=== PATIENT | male | born 1955 | race Caucasian/White ===

== ENCOUNTER 2018-02-04 09:57 | Emergency (ER) | payer MEDICARE | END 2018-02-04 10:45 | disposition home or self-care (01) | LOC: D.ER 09:57 | DX: T26.91XA Corrosion of right eye and adnexa, part unspecified, initial encounter (principal); Y93.89 Activity, other specified; Y92.019 Unspecified place in single-family (private) house as the place of occurrence of the external cause ==

== ENCOUNTER → 2018-12-25 09:06 | Outpatient (CLI) | payer OTHER ==
--- NOTE | 2019-01-03 10:38 | ST ---
PATIENT:SIMON MAHER MEDICAL RECORD: [id number] SEX: M LOCATION:[facility] ORDER #: ADMISSION DATE: 12/25/18 AGE OF PATIENT: 63 REFERRING PHYSICIAN: INTERPRETING PHYSICIAN: SHIREEN DIAZ MD DATE OF SERVICE: 12/25/2018 PROCEDURE: Nuclear stress test. INDICATION: Angina, abnormal ECG, hypertension, hyperlipidemia. She was exercised on standard Lexiscan protocol with 32 mCi of sestamibi injected at peak stress, 10 mCi used previously for rest images. FINDINGS: Gated SPECT reveals preserved ejection fraction at 68% with good wall motion and thickening and brightening throughout all segments. SPECT imaging Cardiolite was used as myocardial fusion agent. There is homogeneous uptake throughout all segments at rest and stress with no evidence of inducible ischemia or previous infarction. OVERALL IMPRESSION: 1. This is a normal nuclear stress test with no evidence of inducible ischemia or previous infarction. 2. Gated SPECT reveals a preserved ejection fraction at 68%. In this patient with ongoing symptomatology, the current scan does not suggest the presence of hemodynamically significant coronary artery disease. Evaluate noncardiac etiology of chest pain. TRANSINT:[id number] Voice Confirmation ID: [id number] DOCUMENT ID: [id number] SHIREEN DIAZ MD at 1038 CC: [id number] DICTATION DATE: 12/26/18 1035 BRICK STACKER: 12/26/18 1107 DEP CLI 12/25/[address] [address]
== END | disposition home or self-care (01) ==
LOC: D.HCCARDIO 09:06
PROVIDERS: ATTEND Internal Medicine Interventional Cardiology
DX: I25.119 Atherosclerotic heart disease of native coronary artery with unspecified angina pectoris (principal)

== ENCOUNTER → 2019-08-13 09:51 | Outpatient (CLI) | payer OTHER | END | disposition home or self-care (01) | LOC: D.RAD 09:51 | PROVIDERS: ATTEND Nurse Practitioner Family | DX: R60.9 Edema, unspecified (principal); W54.0XXA Bitten by dog, initial encounter; T14.8XXA Other injury of unspecified body region, initial encounter ==

== ENCOUNTER 2020-12-26 10:27 | Inpatient (IN) | payer OTHER ==
[~2020-12-26] VITALS: Ht 182.9 cm; Wt 90.9 kg
[2020-12-26] MEDS ORDERED: OMEPRAZOLE40 MG PO (10:54)
[2020-12-26] MEDS ORDERED: VOLTAREN75 MG PO (10:54)
[2020-12-26] MEDS ORDERED: LISINOPRIL20 MG PO (10:54)
[2020-12-26 11:28] LABS: BASOPHILS 0.3 % (0-2); EOSINOPHILS 3.4 % (0-7); HEMATOCRIT 42.3 % (42.0-54.0); HEMOGLOBIN 14.2 g/dL (13.5-17.5); IMMATURE GRANULOCYTES 0.3 % (0-5); LYMPHOCYTE ABS# 1.15 10x3/uL (1.32-3.57); LYMPHOCYTES 19.7 % (15-50); MCHC 33.6 g/dL (31.0-37.0); MCV 89.4 fL (80.0-100.0); MEAN PLATELET VOLUME 10.6 fL (7.4-10.4); MONOCYTES 10.6 % (2-11); NEUTROPHIL ABS# 3.84 10x3/uL (1.78-5.38); NEUTROPHILS 65.7 % (40-80); PLATELET COUNT 184 10x3/uL (130-400); RBC 4.73 10x6/uL (4.20-6.10); RDW 13.5 % (11.5-14.5); WBC 5.9 10x3/uL (4.8-10.8)
[2020-12-26 11:33] LABS: CALC OSMOLALITY 284 mosm/kg (275-300); CALCIUM 9.2 mg/dL (8.5-10.1); CARBON DIOXIDE 21.8 mmol/L (21.0-32.0); CHLORIDE - SERUM 107 mmol/L (98-107); CREATININE - SERUM 2.5 mg/dL (0.6-1.3); GLUCOSE 98 mg/dL (74-106); POTASSIUM - SERUM 5.1 mmol/L (3.5-5.1); SODIUM 139 mmol/L (136-145); UREA NITROGEN 32 mg/dL (7-18); eGFR NON AFRICAN AMERICAN 28 mL/min (90-120)
[2020-12-26 11:42] LABS: ALBUMIN 3.7 g/dL (3.4-5.0); ALKALINE PHOSPHATASE 127 U/L (30-120); ALT (SGPT) 803 U/L (10-68); AMYLASE - SERUM 118 U/L (25-115); BILIRUBIN - TOTAL 1.32 mg/dL (0.2-1.3); LIPASE 390 U/L (73-393); PROTEIN - SERUM 6.9 g/dL (6.4-8.2); TROPONIN-I < 0.017 ng/mL (0.000-0.060)
[2020-12-26 11:47] LABS: BILIRUBIN NEGATIVE (NEGATIVE); KETONE NEGATIVE (NEGATIVE); NITRITE NEGATIVE (NEGATIVE); UROBILINOGEN NORMAL mg/dL (< 2)
[2020-12-26 11:49] LABS: BACTERIA FEW HPF (NONE SEEN); SQUAMOUS EPITHELIAL 0-5 HPF (0-4); WHITE CELLS - URINE 0-5 HPF (0-1)
[2020-12-26 14:33] LABS: UDS - AMPHET NEGATIVE QUAL (NEGATIVE); UDS - BARB NEGATIVE QUAL (NEGATIVE); UDS - BENZO NEGATIVE QUAL (NEGATIVE); UDS - COCAINE NEGATIVE QUAL (NEGATIVE); UDS - OPIATE NEGATIVE QUAL (NEGATIVE); UDS - PCP NEGATIVE QUAL (NEGATIVE); UDS - THC NEGATIVE QUAL (NEGATIVE)
[2020-12-26 15:46] LABS: INR 1.1 (0.85-1.17); PROTIME 13.2 SECONDS (11.6-15.0)
--- NOTE | 2020-12-26 16:15 | NUR ---
Arrived to unit from ER via w/c accompanied by hospital staff, oriented to unit, oriented to room, oriented to bed controls; currently lying in bed, awake/alert/oriented, T/R self ad jennifer, cont of B/B with BRPs per self ad jennifer, denies pain/other discomfort at this time, call light/phone/water within reach, no s/s of acute distress observed.
[2020-12-26 16:23] VITALS: Ht 182.9 cm; Wt 90.9 kg
[2020-12-26 21:30] VITALS: BP 141/71
--- NOTE | 2020-12-27 02:44 | NUR ---
ASSESSED AT THE BEGINNING OF THE SHIFT. PT IS ALERT AND ORIENTED, ABLE TO VERBALIZE NEEDS. HE IS UP TO THE BATHROOM AD MOY AND HAS NOT COMPLAINTED OF ANY NEED FOR PAIN MEDS. HE WAS WONDERING WHEN WE WERE GOING TO GIVE HIM NEW MEDS OR NEW TESTS. INSTRUCTED THAT THE CONSULTING MD HAS TO SEE HIM AND ALL HIS HX AND TEST RESULTS. THEN THEY WILL GET TOGETHER AND GO FROM THERE. AT THIS TIME HE IS RESTING IN BED WITH NO DISTRESS.
[2020-12-27 03:29] VITALS: BP 109/62
[2020-12-27 06:24] LABS: BASOPHILS 0.5 % (0-2); EOSINOPHILS 7.8 % (0-7); HEMATOCRIT 38.5 % (42.0-54.0); HEMOGLOBIN 12.6 g/dL (13.5-17.5); IMMATURE GRANULOCYTES 0.2 % (0-5); LYMPHOCYTE ABS# 1.46 10x3/uL (1.32-3.57); LYMPHOCYTES 26.6 % (15-50); MCH 29.6 pg (26.0-34.0); MCHC 32.7 g/dL (31.0-37.0); MCV 90.4 fL (80.0-100.0); MEAN PLATELET VOLUME 10.8 fL (7.4-10.4); MONOCYTES 7.8 % (2-11); NEUTROPHIL ABS# 3.13 10x3/uL (1.78-5.38); NEUTROPHILS 57.1 % (40-80); PLATELET COUNT 180 10x3/uL (130-400); RBC 4.26 10x6/uL (4.20-6.10); RDW 13.6 % (11.5-14.5); WBC 5.5 10x3/uL (4.8-10.8)
[2020-12-27 06:47] LABS: INR 1.16 (0.85-1.17); PROTIME 13.7 SECONDS (11.6-15.0)
--- NOTE | 2020-12-27 07:00 | NUR ---
Lying in bed, awake/alert/oriented, NPO for test, T/R self ad jennifer, cont of B/B with BRPs per self ad jennifer, denies pain/other discomfort at this time, labs are improving, call light/phone/water within reach, no s/s of acute distress observed.
[2020-12-27 07:06] LABS: ANION GAP 15.6 mmol/L (8-16); BILIRUBIN - TOTAL 0.66 mg/dL (0.2-1.3); CALCIUM 8.3 mg/dL (8.5-10.1); CARBON DIOXIDE 19.2 mmol/L (21.0-32.0); CREATININE - SERUM 1.9 mg/dL (0.6-1.3); MAGNESIUM - SERUM 1.9 mg/dL (1.8-2.4); POTASSIUM - SERUM 4.8 mmol/L (3.5-5.1); PROTEIN - SERUM 5.7 g/dL (6.4-8.2)
[2020-12-27 07:23] LABS: ERYTHROCYTE SEDIMENTATION RATE 10 mm/hr (0-20)
[2020-12-27 07:30] VITALS: BP 141/75
[2020-12-27 08:12] LABS: HEPATITIS C ANTIBODY <0.1 S/CO RAT (0.0-0.9)
--- NOTE | 2020-12-27 08:30 | NUR ---
Off unit for CT
--- NOTE | 2020-12-27 09:00 | NUR ---
Returned to room, cleared for eating, ordered a breakfast tray and provided a soda as requested, call light/phone/water within reach, no s/s of acute distress observed.
[2020-12-27 11:30] VITALS: BP 130/75
[2020-12-27 15:30] VITALS: BP 131/70
[2020-12-27 20:30] VITALS: BP 138/66
[2020-12-28 00:30] VITALS: BP 146/76
[2020-12-28 04:30] VITALS: BP 160/83
[2020-12-28 05:56] LABS: BASOPHILS 0.4 % (0-2); EOSINOPHILS 7.8 % (0-7); HEMATOCRIT 38.6 % (42.0-54.0); HEMOGLOBIN 12.8 g/dL (13.5-17.5); IMMATURE GRANULOCYTES 0.2 % (0-5); LYMPHOCYTE ABS# 1.47 10x3/uL (1.32-3.57); LYMPHOCYTES 28.1 % (15-50); MCHC 33.2 g/dL (31.0-37.0); MCV 90.6 fL (80.0-100.0); MEAN PLATELET VOLUME 10.4 fL (7.4-10.4); MONOCYTES 5.4 % (2-11); NEUTROPHIL ABS# 3.04 10x3/uL (1.78-5.38); NEUTROPHILS 58.1 % (40-80); PLATELET COUNT 164 10x3/uL (130-400); RBC 4.26 10x6/uL (4.20-6.10); RDW 13.5 % (11.5-14.5); WBC 5.2 10x3/uL (4.8-10.8)
[2020-12-28 06:21] LABS: ALBUMIN 3.1 g/dL (3.4-5.0); ANION GAP 15.5 mmol/L (8-16); BILIRUBIN - TOTAL 1.51 mg/dL (0.2-1.3); CALCIUM 8.7 mg/dL (8.5-10.1); CARBON DIOXIDE 20.2 mmol/L (21.0-32.0); CREATININE - SERUM 1.6 mg/dL (0.6-1.3); POTASSIUM - SERUM 4.7 mmol/L (3.5-5.1); PROTEIN - SERUM 6.1 g/dL (6.4-8.2); THYROID STIMULATING HORMONE 0.22 uIU/mL (0.36-3.74)
[2020-12-28] MEDS ORDERED: PROCARDIA XL60 MG PO (08:27)
[2020-12-28 08:43] VITALS: BP 167/81
--- NOTE | 2020-12-28 10:01 | NUR ---
PT'S DISCHARGE INSTRUCTIONS REVIEWED AND SIGNED. IV OUT. SCRIPT TO ASIF, INSTRUCTED TO START TAKING WHEN FILLED. WHEELED TO ER FOR DRIVING SELF HOME.
--- NOTE | 2020-12-28 11:28 | MORECARE ---
CASE MANAGEMENT DISCHARGE SUMMARY PATIENT: VIDAL MAHER UNIT: [id number] ADM DATE: 12/26/20 AGE: 65 : 55 SEX: M ROOM/BED: D.5133 AUTHOR: ANA OCONNOR PHYSICIAN: REFERRING PHYSICIAN: HIRAM KC MD DATE OF SERVICE: 12/28/20 Case Management Discharge Planning Summary COMMENTS ENTERED DATE: 12/28/20 11:13 CT COMMENT TYPE: Discharge Planning REVIEWER: Neeta Montgomery CM met with patient to complete DC plan and to evaluate needs. Patient lives independently alone. Patient stated that his home is safe and has electricity and running water. Patient stated that he has no problems paying for medications and he fills his medications at [facility]. Patient stated that his primary care physician is Dr. Gomez. At discharge, the patient plans to return home and feels this is a safe discharge. CM discussed availability of home health, rehab services, and medical equipment. Patient declined HHS, SNF, IPR, and DME. Patient stated that he is independent and requires no assistance with ADLs. Patient voiced no other needs at this time and is satisfied with DC plan. Patient stated that his brother will provide transportation after discharge. DC IMM delivered, explained, signed by the patient, and placed in chart. Signed form also left with the patient. CM will continue to follow and will assist as needed with dc plans/needs. DCP REVIEW SUMMARY ANTICIPATED D/C DATE: 12/28/2020 EXPECTED LOS : 2 CASE STATUS: DCP Complete INITIAL REVIEW: 12/28/2020 INITIAL REVIEWER: Neeta Montgomery FINAL DISCHARGE DISPOSITION: 01 : Home or Self Care (Routine Discharge) FINAL REVIEWER: FINAL REVIEW DATE: [facility] Focus Questions & Answers QUESTION: ANSWER : PATIENT: VIDAL MAHER ENCOUNTER: [id number] MEDICAL RECORD#: [id number] ADMISSION DATE: 12/26/2020 DISCHARGE DATE: 12/28/2020 ATTENDING MD: GENARO: AGE: 65 MARITAL STATUS: S DC PLAN ID: [id number] FACILITY: [facility] PRINTED ON: 12/28/20 11:27 CT All edits/amendments must be made on the electronic document DICTATION DATE: 12/28/201126 MARINE CARGO SURVEYOR: NAYE 12/28/20 112 RPT#: [id number] DC DATE:12/28/20 STATUS: DIS IN [facility] [address] [place] [address] END OF REPORT
--- NOTE | 2020-12-28 11:39 | MORECARE ---
CASE MANAGEMENT DISCHARGE SUMMARY PATIENT: VIDAL MAHER JR UNIT: [id number] ADM DATE: 12/26/20 AGE: 65 : 55 SEX: M ROOM/BED: D.8223 AUTHOR: ANA OCONNOR PHYSICIAN: REFERRING PHYSICIAN: HIRAM KC MD DATE OF SERVICE: 12/28/20 Case Management Discharge Planning Summary COMMENTS ENTERED DATE: 12/28/20 11:13 CT COMMENT TYPE: Discharge Planning REVIEWER: Neeta Montgomery CM met with patient to complete DC plan and to evaluate needs. Patient lives independently alone. Patient stated that his home is safe and has electricity and running water. Patient stated that he has no problems paying for medications and he fills his medications at [facility]. Patient stated that his primary care physician is Dr. Gomez. At discharge, the patient plans to return home and feels this is a safe discharge. CM discussed availability of home health, rehab services, and medical equipment. Patient declined HHS, SNF, IPR, and DME. Patient stated that he is independent and requires no assistance with ADLs. Patient voiced no other needs at this time and is satisfied with DC plan. Patient stated that his brother will provide transportation after discharge. DC IMM delivered, explained, signed by the patient, and placed in chart. Signed form also left with the patient. CM will continue to follow and will assist as needed with dc plans/needs. DCP REVIEW SUMMARY ANTICIPATED D/C DATE: 12/28/2020 EXPECTED LOS : 2 CASE STATUS: DCP Complete INITIAL REVIEW: 12/28/2020 INITIAL REVIEWER: Neeta Montgomery FINAL DISCHARGE DISPOSITION: 01 : Home or Self Care (Routine Discharge) FINAL REVIEWER: FINAL REVIEW DATE: DCP Focus Questions & Answers DCP Screen QUESTION: ANSWER High Risk Factors: : None Walking limitation: Patient stated self rated walking limitation present? : No Age: : 65 - 79 Prior living environment: : Lives Alone Disability ranking: : Grade 1: No significant disability DCP Evaluation QUESTION: ANSWER Patient and/or caregiver agree upon recommended discharge plan? : Yes Patient's current cognitive status: : *Oriented to person, place, situation, time and present Patient's ability to cope with chronic illness : d. No chronic illness Does the patient have the ability to pay for or attain post discharge needs / services? : Yes Functional screen assessment: : Basic needs can adequately be met by self Physical Status: : Independent with ADL's Equipment needed for post hospitalization: : None Is there a likelihood that the patient will require additional services to return to the preadmission environment? : No Living Arrangements: : Home Alone with Support Results of this evaluation have been discussed with: : Patient Patient with capacity for self-care or can be cared for in same environment as prior to hospitalization? : Yes Living arrangements comments: : Lives alone and reports independence of ADLs Baseline cognitive status: : *Oriented to person, place, situation, time and present Physical environment modification needed / anticipated for discharge: : No Medication Management: : Patient states can afford medications Planned post hospital services available for patient? : No Pharmacy name(s): : [facility] Planned post hospital services covered by insurance plan? : N/A Does Patient have transportation to get home and to follow-up medical appointments when discharged from the hospital? : Yes Would patient like to participate in any Care Coordination programs (if applicable): : Not applicable Comments: : Patient drives himself to appointments. Does the patient have electricity at home? : Yes Does the patient have running water in their house? : Yes Equipment in use: : None Mental health screen: : No mental health history DCP Re-evaluation QUESTION: ANSWER Would patient like to participate in any Care Coordination programs (if applicable): : Not applicable PATIENT: VIDAL MAHER ENCOUNTER: [id number] MEDICAL RECORD#: [id number] ADMISSION DATE: 12/26/2020 DISCHARGE DATE: 12/28/2020 ATTENDING MD: GENARO: AGE: 65 MARITAL STATUS: S DC PLAN ID: [id number] FACILITY: [facility] PRINTED ON: 12/28/20 11:38 CT All edits/amendments must be made on the electronic document DICTATION DATE: 12/28/20 113 LICENSED OCCUPATIONAL THERAPIST: NAYE 12/28/20 1138 RPT#: [id number] DC DATE:12/28/20 STATUS: DIS IN [facility] [address] [place] [address] END OF REPORT
[2020-12-29 18:08] LABS: SPE - A/G RATIO 1.6 (0.7-1.7); SPE - ALBUMIN 3.3 g/dL (2.9-4.4); SPE - ALPHA-1 GLOBULIN 0.2 g/dL (0.0-0.4); SPE - ALPHA-2 GLOBULIN 0.5 g/dL (0.4-1.0); SPE - BETA GLOBULIN 0.9 g/dL (0.7-1.3); SPE - GAMMA GLOBULIN 0.6 g/dL (0.4-1.8); SPE - M-SPIKE Not Observed g/dL (Not Observed); SPE - TOTAL PROTEIN 5.4 g/dL (6.0-8.5)
--- NOTE | 2020-12-31 20:34 | MORECARE ---
CASE MANAGEMENT DISCHARGE SUMMARY PATIENT: VIDAL MAHER JR UNIT: [id number] ADM DATE: 12/26/20 AGE: 65 : 55 SEX: M ROOM/BED: D.7853 AUTHOR: ANA OCONNOR PHYSICIAN: REFERRING PHYSICIAN: HIRAM KC MD DATE OF SERVICE: 12/31/20 Case Management Discharge Planning Summary COMMENTS ENTERED DATE: 12/28/20 11:13 CT COMMENT TYPE: Discharge Planning REVIEWER: Neeta Montgomery CM met with patient to complete DC plan and to evaluate needs. Patient lives independently alone. Patient stated that his home is safe and has electricity and running water. Patient stated that he has no problems paying for medications and he fills his medications at [facility]. Patient stated that his primary care physician is Dr. Gomez. At discharge, the patient plans to return home and feels this is a safe discharge. CM discussed availability of home health, rehab services, and medical equipment. Patient declined HHS, SNF, IPR, and DME. Patient stated that he is independent and requires no assistance with ADLs. Patient voiced no other needs at this time and is satisfied with DC plan. Patient stated that his brother will provide transportation after discharge. DC IMM delivered, explained, signed by the patient, and placed in chart. Signed form also left with the patient. CM will continue to follow and will assist as needed with dc plans/needs. DCP REVIEW SUMMARY ANTICIPATED D/C DATE: 12/28/2020 EXPECTED LOS : 2 CASE STATUS: DCP Complete INITIAL REVIEW: 12/28/2020 INITIAL REVIEWER: Neeta Montgomery FINAL DISCHARGE DISPOSITION: 01 : Home or Self Care (Routine Discharge) FINAL REVIEWER: FINAL REVIEW DATE: DCP Focus Questions & Answers DCP Screen QUESTION: ANSWER High Risk Factors: : None Walking limitation: Patient stated self rated walking limitation present? : No Age: : 65 - 79 Prior living environment: : Lives Alone Disability ranking: : Grade 1: No significant disability DCP Evaluation QUESTION: ANSWER Patient and/or caregiver agree upon recommended discharge plan? : Yes Patient's current cognitive status: : *Oriented to person, place, situation, time and present Patient's ability to cope with chronic illness : d. No chronic illness Does the patient have the ability to pay for or attain post discharge needs / services? : Yes Functional screen assessment: : Basic needs can adequately be met by self Physical Status: : Independent with ADL's Equipment needed for post hospitalization: : None Is there a likelihood that the patient will require additional services to return to the preadmission environment? : No Living Arrangements: : Home Alone with Support Results of this evaluation have been discussed with: : Patient Patient with capacity for self-care or can be cared for in same environment as prior to hospitalization? : Yes Living arrangements comments: : Lives alone and reports independence of ADLs Baseline cognitive status: : *Oriented to person, place, situation, time and present Physical environment modification needed / anticipated for discharge: : No Medication Management: : Patient states can afford medications Planned post hospital services available for patient? : No Pharmacy name(s): : [facility] [address] Planned post hospital services covered by insurance plan? : N/A Does Patient have transportation to get home and to follow-up medical appointments when discharged from the hospital? : Yes Would patient like to participate in any Care Coordination programs (if applicable): : Not applicable Comments: : Patient drives himself to appointments. Does the patient have electricity at home? : Yes Does the patient have running water in their house? : Yes Equipment in use: : None Mental health screen: : No mental health history DCP Re-evaluation QUESTION: ANSWER Would patient like to participate in any Care Coordination programs (if applicable): : Not applicable PATIENT: VIDAL MAHER ENCOUNTER: [id number] MEDICAL RECORD#: [id number] ADMISSION DATE: 12/26/2020 DISCHARGE DATE: 12/28/2020 ATTENDING MD: GENARO: AGE: 65 MARITAL STATUS: S DC PLAN ID: [id number] FACILITY: [facility] PRINTED ON: 12/31/20 20:33 CT All edits/amendments must be made on the electronic document DICTATION DATE: 12/31/202032 PRODUCT TEST ENGINEER: NAYE 12/31/202032 RPT#: [id number] DC DATE:12/28/20 STATUS: DIS IN [facility] [address] [place] [address] END OF REPORT
[2021-01-01 11:11] LABS: CAT - DOPAMINE <30 pg/mL (0-48); CAT - EPINEPHRINE <15 pg/mL (0-62); CAT - NOREPINEPHRINE 47 pg/mL (0-874)
== END 2020-12-28 10:02 | disposition home or self-care (01) | DRG 444 ==
LOC: D.ER 10:27 → D.M2 14:08 → D.ER 15:26 → D.M2 12-28 10:02
PROVIDERS: Emergency Medicine; Internal Medicine Nephrology; ADMIT Family Medicine; ATTEND Family Medicine
DX: K81.1 Chronic cholecystitis (principal); K72.00 Acute and subacute hepatic failure without coma; N17.9 Acute kidney failure, unspecified; G89.29 Other chronic pain; M54.5 Low back pain; I25.10 Atherosclerotic heart disease of native coronary artery without angina pectoris; J43.9 Emphysema, unspecified; I11.0 Hypertensive heart disease with heart failure; I50.9 Heart failure, unspecified; K21.9 Gastro-esophageal reflux disease without esophagitis; Z86.73 Personal history of transient ischemic attack (TIA), and cerebral infarction without residual deficits

== ENCOUNTER 2020-12-30 10:26 | Inpatient (IN) | payer OTHER ==
[~2020-12-30] VITALS: Ht 182.9 cm; Wt 90.7 kg
[~2020-12-30 10:26] MED LIST: LISINOPRIL20 MG PO; OMEPRAZOLE40 MG PO; PROCARDIA XL60 MG PO; VOLTAREN75 MG PO
[2020-12-30 11:00] LABS: ANION GAP 17.5 mmol/L (8-16); CALCIUM 9.9 mg/dL (8.5-10.1); CARBON DIOXIDE 19.2 mmol/L (21.0-32.0); CREATININE - SERUM 1.9 mg/dL (0.6-1.3); POTASSIUM - SERUM 4.7 mmol/L (3.5-5.1)
[2020-12-30 11:08] LABS: ALBUMIN 4.3 g/dL (3.4-5.0); BILIRUBIN - TOTAL 5.13 mg/dL (0.2-1.3); PROTEIN - SERUM 7.8 g/dL (6.4-8.2)
[2020-12-30 11:57] LABS: BASOPHILS 0.1 % (0-2); EOSINOPHILS 0.2 % (0-7); HEMATOCRIT 46.3 % (42.0-54.0); HEMOGLOBIN 15.6 g/dL (13.5-17.5); IMMATURE GRANULOCYTES 0.3 % (0-5); LYMPHOCYTES 4.5 % (15-50); MCH 30.2 pg (26.0-34.0); MCHC 33.7 g/dL (31.0-37.0); MCV 89.7 fL (80.0-100.0); MEAN PLATELET VOLUME 11.3 fL (7.4-10.4); MONOCYTES 6.1 % (2-11); NEUTROPHIL ABS# 11.78 10x3/uL (1.78-5.38); NEUTROPHILS 88.8 % (40-80); PLATELET COUNT 241 10x3/uL (130-400); RBC 5.16 10x6/uL (4.20-6.10); RDW 13.5 % (11.5-14.5); WBC 13.3 10x3/uL (4.8-10.8)
[2020-12-30 11:58] LABS: BILIRUBIN 1+ (NEGATIVE); KETONE NEGATIVE (NEGATIVE); NITRITE NEGATIVE (NEGATIVE); UROBILINOGEN 4 mg/dL (< 2)
[2020-12-30 12:01] LABS: BACTERIA MODERATE HPF (NONE SEEN); SQUAMOUS EPITHELIAL 0-5 HPF (0-4); WHITE CELLS - URINE RARE HPF (0-1)
[2020-12-30 12:02] LABS: GRANULAR CAST RARE LPF (NONE SEEN)
[2020-12-30 14:41] LABS: INR 0.97 (0.85-1.17); PROTIME 11.9 SECONDS (11.6-15.0)
[2020-12-30 15:09] VITALS: BP 181/79
--- NOTE | 2020-12-30 16:00 | NUR ---
RECEIVED PATIENT FROM ER . PATIENT COMPLAINS OF ABD PAIN AND BLOATING. PATIENT VITALS CHECKED AND PLAN OF CARE REVIEWED. PATIENT DENIES FURTHER NEEDS. CALL LIGHT IN REACH. NAD NOTED.
[2020-12-30 16:01] VITALS: BMI 27.2
--- NOTE | 2020-12-30 19:30 | NUR ---
PT IN BED, AAO X 4, RESP EVEN AND UNLABORED, NO DISTRESS NOTED, CL IN REACH, SR UP X 2.
[2020-12-30 20:00] VITALS: BP 149/79
[2020-12-31] VITALS: BP 170/98
[2020-12-31 04:00] VITALS: BP 176/94
[2020-12-31 06:12] LABS: BASOPHILS 0.1 % (0-2); EOSINOPHILS 0.2 % (0-7); HEMATOCRIT 43.8 % (42.0-54.0); HEMOGLOBIN 14.3 g/dL (13.5-17.5); IMMATURE GRANULOCYTES 0.2 % (0-5); LYMPHOCYTE ABS# 0.75 10x3/uL (1.32-3.57); LYMPHOCYTES 5.6 % (15-50); MCHC 32.6 g/dL (31.0-37.0); MEAN PLATELET VOLUME 10.6 fL (7.4-10.4); MONOCYTES 8.7 % (2-11); NEUTROPHIL ABS# 11.33 10x3/uL (1.78-5.38); NEUTROPHILS 85.2 % (40-80); RBC 4.77 10x6/uL (4.20-6.10); RDW 13.7 % (11.5-14.5); WBC 13.3 10x3/uL (4.8-10.8)
[2020-12-31 06:32] LABS: ALBUMIN 3.3 g/dL (3.4-5.0); ANION GAP 17.5 mmol/L (8-16); BILIRUBIN - TOTAL 2.37 mg/dL (0.2-1.3); CALCIUM 8.5 mg/dL (8.5-10.1); CARBON DIOXIDE 20.1 mmol/L (21.0-32.0); CREATININE - SERUM 1.7 mg/dL (0.6-1.3); MAGNESIUM - SERUM 1.6 mg/dL (1.8-2.4); PHOSPHOROUS 2.8 mg/dL (2.5-4.9); POTASSIUM - SERUM 4.6 mmol/L (3.5-5.1); PROTEIN - SERUM 6.4 g/dL (6.4-8.2)
[2020-12-31 06:34] LABS: MCV 91.8 fL (80.0-100.0); PLATELET COUNT 178 10x3/uL (130-400)
--- NOTE | 2020-12-31 07:20 | NUR ---
Lying in bed, awake/alert/oriented, T/R self ad jennifer, cont of B/B with BRPs per self ad jennifer, c/o sharp abdominal pain rated 8/10, medicated as ordered (see MAR), call light/phone/water within reach, no s/s of acute distress observed.
[2020-12-31 08:53] VITALS: BP 157/93
[2020-12-31 11:56] VITALS: BP 139/92
[2020-12-31 16:07] VITALS: BP 144/89
[2020-12-31 19:46] VITALS: BP 161/84
[2021-01-01 05:09] VITALS: BP 148/76
[2021-01-01 06:51] LABS: BASOPHILS 0.1 % (0-2); EOSINOPHILS 0.3 % (0-7); HEMATOCRIT 38.3 % (42.0-54.0); HEMOGLOBIN 12.8 g/dL (13.5-17.5); IMMATURE GRANULOCYTES 0.3 % (0-5); LYMPHOCYTE ABS# 1.28 10x3/uL (1.32-3.57); LYMPHOCYTES 8.7 % (15-50); MCH 30.4 pg (26.0-34.0); MCHC 33.4 g/dL (31.0-37.0); MEAN PLATELET VOLUME 10.6 fL (7.4-10.4); MONOCYTES 9.7 % (2-11); NEUTROPHIL ABS# 11.81 10x3/uL (1.78-5.38); NEUTROPHILS 80.9 % (40-80); RBC 4.21 10x6/uL (4.20-6.10); RDW 13.2 % (11.5-14.5); WBC 14.6 10x3/uL (4.8-10.8)
[2021-01-01 07:04] LABS: PLATELET COUNT 132 10x3/uL (130-400)
[2021-01-01 07:07] LABS: ALBUMIN 2.8 g/dL (3.4-5.0); ANION GAP 13.3 mmol/L (8-16); BILIRUBIN - TOTAL 1.2 mg/dL (0.2-1.3); CALCIUM 8.3 mg/dL (8.5-10.1); CARBON DIOXIDE 21.7 mmol/L (21.0-32.0); CREATININE - SERUM 1.6 mg/dL (0.6-1.3); MAGNESIUM - SERUM 1.6 mg/dL (1.8-2.4); PHOSPHOROUS 2.2 mg/dL (2.5-4.9)
--- NOTE | 2021-01-01 07:30 | NUR ---
Lying in bed, awake/alert/oriented, T/R self ad jennifer, cont of B/B with BRPs per self ad jennifer, denies pain/other discomfort, call light/phone/water within reach, no s/s of acute distress observed.
[2021-01-01 08:17] VITALS: BP 145/90
[2021-01-01 11:36] VITALS: BP 142/86
[2021-01-01 15:58] VITALS: BP 146/91
--- NOTE | 2021-01-01 18:55 | NUR ---
PT LYING IN BED, AWAKE ALERT NO DISTRESS NOTED WILL COTNIUE TO MONITOR
--- NOTE | 2021-01-01 19:08 | NUR ---
pt ambulating outside room at nurses desk, awake alert no distress noted
[2021-01-01 19:17] VITALS: BP 142/74
[2021-01-02 00:33] VITALS: BP 114/75
[2021-01-02 04:39] VITALS: BP 126/77
[2021-01-02 06:33] LABS: BASOPHILS 0.1 % (0-2); EOSINOPHILS 0.6 % (0-7); HEMATOCRIT 36.8 % (42.0-54.0); HEMOGLOBIN 12.4 g/dL (13.5-17.5); IMMATURE GRANULOCYTES 0.4 % (0-5); LYMPHOCYTE ABS# 1.26 10x3/uL (1.32-3.57); LYMPHOCYTES 9.4 % (15-50); MCH 30.1 pg (26.0-34.0); MCHC 33.7 g/dL (31.0-37.0); MCV 89.3 fL (80.0-100.0); MEAN PLATELET VOLUME 10.8 fL (7.4-10.4); MONOCYTES 10.2 % (2-11); NEUTROPHIL ABS# 10.66 10x3/uL (1.78-5.38); NEUTROPHILS 79.3 % (40-80); PLATELET COUNT 149 10x3/uL (130-400); RBC 4.12 10x6/uL (4.20-6.10); RDW 12.9 % (11.5-14.5); WBC 13.4 10x3/uL (4.8-10.8)
[2021-01-02 07:25] LABS: ALBUMIN 2.6 g/dL (3.4-5.0); BILIRUBIN - TOTAL 1.21 mg/dL (0.2-1.3); CALCIUM 8.5 mg/dL (8.5-10.1); CARBON DIOXIDE 22.6 mmol/L (21.0-32.0); CREATININE - SERUM 1.7 mg/dL (0.6-1.3); MAGNESIUM - SERUM 1.5 mg/dL (1.8-2.4); PHOSPHOROUS 2.4 mg/dL (2.5-4.9); POTASSIUM - SERUM 3.6 mmol/L (3.5-5.1); PROTEIN - SERUM 6.1 g/dL (6.4-8.2)
--- NOTE | 2021-01-02 07:30 | NUR ---
Lying in bed, awake/alert/oriented, T/R self ad jennifer, cont of B/B with BRPs per self ad jennifer, denies pain/other discomfort at this time, call light/phone/water within reach, no s/s of acute distress observed.
[2021-01-02 08:51] VITALS: BP 114/72
[2021-01-02 13:06] VITALS: BP 131/64
[2021-01-02 13:44] VITALS: BMI 27.1
[2021-01-02 15:51] VITALS: BP 152/80
[2021-01-02 20:19] VITALS: BP 120/68
[2021-01-03 00:59] VITALS: BP 100/64
--- NOTE | 2021-01-03 02:01 | NUR ---
01/02/211999-- PT C/O BACK PAIN, ABDOMINAL PAIN & NAUSEA. WILL MEDICATE ORDERED. IVF INFUSING WILL CONTINUE TO MONITOR
--- NOTE | 2021-01-03 02:03 | NUR ---
01/02/21 @ 2029 NOTIFED АЛЕКСАНДР OF KUB RESULTS STATING THAT PT HAD PROBABLE ILEUS. NO NEW ORDERS RECEIVED AT THIS TIME.
[2021-01-03 05:47] VITALS: BP 106/71
[2021-01-03 06:47] LABS: BASOPHILS 0.1 % (0-2); EOSINOPHILS 0.8 % (0-7); HEMATOCRIT 34.3 % (42.0-54.0); HEMOGLOBIN 11.6 g/dL (13.5-17.5); IMMATURE GRANULOCYTES 0.3 % (0-5); LYMPHOCYTE ABS# 0.92 10x3/uL (1.32-3.57); LYMPHOCYTES 8.4 % (15-50); MCH 29.7 pg (26.0-34.0); MCHC 33.8 g/dL (31.0-37.0); MCV 87.9 fL (80.0-100.0); MEAN PLATELET VOLUME 10.7 fL (7.4-10.4); MONOCYTES 12.9 % (2-11); NEUTROPHIL ABS# 8.45 10x3/uL (1.78-5.38); NEUTROPHILS 77.5 % (40-80); PLATELET COUNT 170 10x3/uL (130-400); RDW 12.7 % (11.5-14.5); WBC 10.9 10x3/uL (4.8-10.8)
[2021-01-03 07:20] LABS: ALBUMIN 2.3 g/dL (3.4-5.0); ANION GAP 13.3 mmol/L (8-16); BILIRUBIN - TOTAL 0.99 mg/dL (0.2-1.3); CALCIUM 8.1 mg/dL (8.5-10.1); CARBON DIOXIDE 24.3 mmol/L (21.0-32.0); CREATININE - SERUM 1.8 mg/dL (0.6-1.3); MAGNESIUM - SERUM 1.6 mg/dL (1.8-2.4); POTASSIUM - SERUM 3.6 mmol/L (3.5-5.1)
[2021-01-03 07:21] LABS: PHOSPHOROUS 3.1 mg/dL (2.5-4.9)
[2021-01-03 08:26] VITALS: BP 115/69
[2021-01-03 12:41] VITALS: BP 115/69
[2021-01-03 15:20] VITALS: BP 104/56
--- NOTE | 2021-01-03 19:00 | NUR ---
REPORT RECEIVED AND CARE OF PT ASSUMED. PT LYING IN HIGH JAVIER'S POSITION WATCHING TV. IV TO LEFT WRIST SALINE LOCKED...PT STATES IT IS BURNING...WILL RE-SITE.
[2021-01-03 19:42] VITALS: Ht 182.9 cm; Wt 90.7 kg
--- NOTE | 2021-01-03 19:50 | NUR ---
RE-SITED IV TO RIGHT HAND USING 22 GUAGE CATHETER. REMOVED IV IN LEFT WRIST WITH CATHETER TIP INTACT.
--- NOTE | 2021-01-03 20:01 | NUR ---
HS MEDICATIONS GIVEN TO INCLUDE MORPHINE IVP PER REQUEST FOR SEVERE ABDOMINAL PAIN AT LEVEL 9/10. WILL MONITOR FOR EFFECITVENESS.
--- NOTE | 2021-01-03 22:30 | NUR ---
GAVE 480 ML OF [place] OF [place]COMA SODA WITH ICE...PT DRINKING PLENTY OF CLEAR LIQUIDS...HE REFUSED TO HAVE IV FLUIDS RE-STARTED.
--- NOTE | 2021-01-03 22:35 | NUR ---
PT UP AMBULATING IN THE HALLWAY AT THIS TIME.
--- NOTE | 2021-01-03 23:32 | NUR ---
GIVE MORPHINE 4 MG IVP PER REQUEST FOR ACHING PAIN IN ABDOMEN AND BACK AT LEVEL 8/10. WILL MONITOR FOE EFFECTIVENESS.
--- NOTE | 2021-01-04 04:21 | NUR ---
GAVE PT MORPHINE IVP PER REQUEST FOR PAIN IN LEFT ARM / ELBOW, AND ABDOMEN. PT STATES HIS LEFT ARM MORE PAINFUL NIGHT GOES ON...STATES HISTORY OF ARTHRITIS AND BURSITIS IN ARM. PT WILL REPORT TO MD IN AM.
[2021-01-04 06:04] LABS: BASOPHILS 0.1 % (0-2); EOSINOPHILS 0.6 % (0-7); HEMATOCRIT 32.2 % (42.0-54.0); HEMOGLOBIN 11.1 g/dL (13.5-17.5); IMMATURE GRANULOCYTES 0.3 % (0-5); LYMPHOCYTE ABS# 0.77 10x3/uL (1.32-3.57); LYMPHOCYTES 5.9 % (15-50); MCH 30.1 pg (26.0-34.0); MCHC 34.5 g/dL (31.0-37.0); MCV 87.3 fL (80.0-100.0); MEAN PLATELET VOLUME 10.4 fL (7.4-10.4); MONOCYTES 13.3 % (2-11); NEUTROPHIL ABS# 10.33 10x3/uL (1.78-5.38); NEUTROPHILS 79.8 % (40-80); RBC 3.69 10x6/uL (4.20-6.10); RDW 12.6 % (11.5-14.5)
[2021-01-04 06:07] LABS: PLATELET COUNT 217 10x3/uL (130-400)
[2021-01-04 06:41] LABS: ALBUMIN 2.2 g/dL (3.4-5.0); ANION GAP 13.7 mmol/L (8-16); BILIRUBIN - TOTAL 0.85 mg/dL (0.2-1.3); CALCIUM 8.4 mg/dL (8.5-10.1); CARBON DIOXIDE 22.9 mmol/L (21.0-32.0); CREATININE - SERUM 1.8 mg/dL (0.6-1.3); MAGNESIUM - SERUM 1.6 mg/dL (1.8-2.4); PHOSPHOROUS 2.9 mg/dL (2.5-4.9); POTASSIUM - SERUM 3.6 mmol/L (3.5-5.1); PROTEIN - SERUM 5.9 g/dL (6.4-8.2)
--- NOTE | 2021-01-04 07:20 | NUR ---
RECIEVE REPORT. ALERT AND ORIENTED X4. SITTING UP IN BED WATCHING TV. REPLACE Mg PER PROTOCOL. DENIES ANY NEEDS. CONTINUE PLAN OF CARE AND SAFETY PRECAUTIONS.
[2021-01-04 08:27] VITALS: BP 109/76
[2021-01-04 12:10] VITALS: BP 113/64
[2021-01-04 16:06] VITALS: BP 139/79
[2021-01-04 20:00] VITALS: BP 135/71
[2021-01-05 05:58] VITALS: BP 137/74
[2021-01-05 07:08] LABS: BASOPHILS 0.1 % (0-2); EOSINOPHILS 0.1 % (0-7); HEMOGLOBIN 11.9 g/dL (13.5-17.5); IMMATURE GRANULOCYTES 0.5 % (0-5); LYMPHOCYTE ABS# 0.85 10x3/uL (1.32-3.57); LYMPHOCYTES 5.6 % (15-50); MCH 29.5 pg (26.0-34.0); MCV 86.6 fL (80.0-100.0); MEAN PLATELET VOLUME 9.9 fL (7.4-10.4); MONOCYTES 11.7 % (2-11); NEUTROPHIL ABS# 12.34 10x3/uL (1.78-5.38); PLATELET COUNT 242 10x3/uL (130-400); RBC 4.04 10x6/uL (4.20-6.10); RDW 12.6 % (11.5-14.5); WBC 15.1 10x3/uL (4.8-10.8)
--- NOTE | 2021-01-05 07:20 | NUR ---
RECIEVE REPORT. ALERT AND ORIENTED X4. SITTING UP IN BED WATCHING TV. DENIES ANY NEEDS. CONTINUE PLAN OF CARE AND SAFETY PRECAUTIONS.
[2021-01-05 07:48] LABS: ALBUMIN 2.3 g/dL (3.4-5.0); ANION GAP 16.5 mmol/L (8-16); BILIRUBIN - TOTAL 0.8 mg/dL (0.2-1.3); CALCIUM 8.4 mg/dL (8.5-10.1); CARBON DIOXIDE 22.8 mmol/L (21.0-32.0); CREATININE - SERUM 1.9 mg/dL (0.6-1.3); POTASSIUM - SERUM 3.3 mmol/L (3.5-5.1); PROTEIN - SERUM 5.6 g/dL (6.4-8.2)
--- NOTE | 2021-01-05 14:01 | NUR ---
Nutrition Follow-up: Pt sleeping soundly at time of visit this AM. Chart reviewed. Noted diet advanced per surgery. Abd XR yesterday showed mild ileus without change. +BM. Diet: Regular, Low-fat No new wt; last wt: 200# (01/02) Labs noted: Na 132, K+ 3.3, BUN 22, Cre 1.9, GFR 38, Glu 155, Ca 8.4, Alb 2.3 Meds noted: Lactulose, Florajen, Senokot, Protonix, electrolyte protocol -Encourage PO intake and honor food preferences within diet restrictions; monitor bowel function. -Offer nutrition supplements. -Need new wt. -RD will follow up within 3-4 days.
[2021-01-05 22:25] VITALS: BP 122/60
[2021-01-06] VITALS: BP 106/60
--- NOTE | 2021-01-06 04:20 | NUR ---
I have reviewed this patient and I concur with the Shift Assessment completed by the Licensed Practical Nurse today this shift.
[2021-01-06 10:10] LABS: BASOPHILS 0.1 % (0-2); EOSINOPHILS 0.1 % (0-7); HEMATOCRIT 34.6 % (42.0-54.0); HEMOGLOBIN 11.8 g/dL (13.5-17.5); IMMATURE GRANULOCYTES 0.7 % (0-5); LYMPHOCYTE ABS# 0.48 10x3/uL (1.32-3.57); LYMPHOCYTES 3.1 % (15-50); MCH 29.5 pg (26.0-34.0); MCHC 34.1 g/dL (31.0-37.0); MCV 86.5 fL (80.0-100.0); MEAN PLATELET VOLUME 9.6 fL (7.4-10.4); MONOCYTES 6.5 % (2-11); NEUTROPHIL ABS# 13.89 10x3/uL (1.78-5.38); NEUTROPHILS 89.5 % (40-80); PLATELET COUNT 258 10x3/uL (130-400); RDW 12.6 % (11.5-14.5); WBC 15.5 10x3/uL (4.8-10.8)
[2021-01-06 10:19] LABS: ANION GAP 15.3 mmol/L (8-16); CALCIUM 8.6 mg/dL (8.5-10.1); CARBON DIOXIDE 21.6 mmol/L (21.0-32.0); POTASSIUM - SERUM 3.9 mmol/L (3.5-5.1)
--- NOTE | 2021-01-06 13:35 | NUR ---
REHAB PRESCREEN RECEIVED. PATIENTS THERAPIES ARE STILL PENDING. I WILL LOOK THROUGH THE CHART ONCE THESE ARE COMPLETED TO SEE IF HE MEETS CRITERIA. IF HE DOES, WE WILL HAVE TO SEND FOR AUTH WITH RENZO. THANK YOU FOR THE REFERRAL. TAMARA SCHERER RN CLINICAL LIAISON, INPATIENT REHAB.
[2021-01-06 15:17] VITALS: BP 126/73
[2021-01-06 20:00] VITALS: BP 126/73
[2021-01-06 21:45] VITALS: BP 123/67
--- NOTE | 2021-01-07 00:47 | NUR ---
1999-- PT SITTING UP IN BED. TALKATIVE C/O PAIN TO BODY VERY DISHEVELED & STALE BODY ODOR NOTED TO ROOM BSC EMPTIED & CLEANED PT CLOTHES THROWN IN CORNER WITH WET, URINE ODOR NOTED. STATES THAT HE ISN'T ABLE TO FEED SELF D/T INFLAMMATION & SORENESS TO JOINTS FRESH WATER TO BEDSIDE & MEDICATED FOR PAIN ORDERED
[2021-01-07 01:34] VITALS: BP 107/66
[2021-01-07 04:43] LABS: BASOPHILS 0 % (0-2); EOSINOPHILS 0 % (0-7); HEMATOCRIT 33.4 % (42.0-54.0); HEMOGLOBIN 11.6 g/dL (13.5-17.5); IMMATURE GRANULOCYTES 0.5 % (0-5); LYMPHOCYTE ABS# 0.59 10x3/uL (1.32-3.57); MCHC 34.7 g/dL (31.0-37.0); MCV 86.3 fL (80.0-100.0); MEAN PLATELET VOLUME 9.9 fL (7.4-10.4); MONOCYTES 4.4 % (2-11); NEUTROPHIL ABS# 13.36 10x3/uL (1.78-5.38); NEUTROPHILS 91.1 % (40-80); RBC 3.87 10x6/uL (4.20-6.10); RDW 12.5 % (11.5-14.5); WBC 14.7 10x3/uL (4.8-10.8)
[2021-01-07 04:51] LABS: PLATELET COUNT 311 10x3/uL (130-400)
[2021-01-07 05:00] LABS: ALBUMIN 1.8 g/dL (3.4-5.0); ANION GAP 17.2 mmol/L (8-16); BILIRUBIN - TOTAL 0.43 mg/dL (0.2-1.3); CALCIUM 8.5 mg/dL (8.5-10.1); CARBON DIOXIDE 20.7 mmol/L (21.0-32.0); CREATININE - SERUM 1.8 mg/dL (0.6-1.3); MAGNESIUM - SERUM 2.2 mg/dL (1.8-2.4); POTASSIUM - SERUM 3.9 mmol/L (3.5-5.1); PROTEIN - SERUM 6.1 g/dL (6.4-8.2)
[2021-01-07 05:18] VITALS: BP 108/68
--- NOTE | 2021-01-07 07:00 | NUR ---
PT LYING IN BED. RESP EVEN AND UNLABORED. AAOX4. DENIES NEEDS AT THIS TIME. CLIR. BED IN LOWEST POSITION. SIDE RAILS X2
[2021-01-07 08:27] VITALS: BP 118/58
[2021-01-07 11:00] VITALS: BP 117/63
[2021-01-07 14:37] VITALS: BP 120/64
--- NOTE | 2021-01-07 15:42 | NUR ---
I have reviewed this patient and I concur with the Shift Assessment completed by the Licensed Practical Nurse today this shift.
--- NOTE | 2021-01-07 16:57 | NUR ---
OT NOTE: PT COMPLETED BED MOB WITH MIN A. PT COMPLETED COMPLETED BED TO BSC TSF WITH CGA-MIN A. PT COMPLETED TOILETING HYGIENE WITH MIN A. PT REQUIRED MAX A FOR NADJA/DOFF BRIEF. NURSING NOTIFIED THAT REQUESTED BRIEF...PT HAD PURE WICK. [phone] JAVON PEARCE COTA
[2021-01-07 21:29] VITALS: BP 128/68
[2021-01-08 01:44] VITALS: BP 120/72
[2021-01-08 05:35] VITALS: BP 128/66
[2021-01-08 05:57] LABS: BASOPHILS 0.1 % (0-2); EOSINOPHILS 0.1 % (0-7); HEMATOCRIT 32.7 % (42.0-54.0); HEMOGLOBIN 11.1 g/dL (13.5-17.5); LYMPHOCYTE ABS# 1.59 10x3/uL (1.32-3.57); MCH 29.8 pg (26.0-34.0); MCHC 33.9 g/dL (31.0-37.0); MCV 87.7 fL (80.0-100.0); MEAN PLATELET VOLUME 9.7 fL (7.4-10.4); MONOCYTES 7.9 % (2-11); NEUTROPHILS 79.9 % (40-80); PLATELET COUNT 365 10x3/uL (130-400); RBC 3.73 10x6/uL (4.20-6.10); RDW 12.7 % (11.5-14.5); WBC 14.5 10x3/uL (4.8-10.8)
[2021-01-08 06:20] LABS: ALBUMIN 1.7 g/dL (3.4-5.0); ANION GAP 13.7 mmol/L (8-16); BILIRUBIN - TOTAL 0.35 mg/dL (0.2-1.3); CALCIUM 8.3 mg/dL (8.5-10.1); CARBON DIOXIDE 24.1 mmol/L (21.0-32.0); CREATININE - SERUM 1.6 mg/dL (0.6-1.3); MAGNESIUM - SERUM 2.1 mg/dL (1.8-2.4); POTASSIUM - SERUM 3.8 mmol/L (3.5-5.1); PROTEIN - SERUM 5.5 g/dL (6.4-8.2)
--- NOTE | 2021-01-08 07:30 | NUR ---
Lying in bed, awake/alert/oriented, T/R self ad jennifer, cont of B/B with use of BSC with assist ad jennifer, c/o sharp left knee pain rated 9/10, medicated as ordered (see MAR), call light/phone/water within reach, no s/s of acute distress observed.
[2021-01-08 08:04] VITALS: BP 137/75
[2021-01-08 11:26] VITALS: BP 142/81
--- NOTE | 2021-01-08 13:51 | NUR ---
INSURANCE HAS APPROVED PATIENT TO COME TO INPATIENT REHAB. WE WILL TAKE HIM TOMORROW, SOON A BED BECOMES AVAILABLE. I HAVE EXPLAINED THIS TO JT MCPHERSON RN CM. AGAIN, THANK YOU FOR THIS REFERRAL. TAMARA SCHERER RN CLINICAL LIAISON, INPATIENT REHAB.
[2021-01-08 15:49] VITALS: BP 147/82
--- NOTE | 2021-01-08 16:32 | NUR ---
OT NOTE: PT COMPLETED BED MOB WITH MOD A. PT COMPLETED BED TO BSC WITH MOD A. PT C/O OF L PATELLA PAIN. NURSING AWARE. PT COMPLETED TOILETING WITH MAX A FOR GARMENT MANAGEMENT AND HYGIENE. [phone] THANK YOU,OBDULIO RDZ
--- NOTE | 2021-01-08 19:19 | NUR ---
PT IN BED, AAO X 4, PT RESP EVEN AND UNLABORED, NO DISTRESS NOTED, CL IN REACH, SR UP X 2.
[2021-01-08 20:13] VITALS: BP 143/72
[2021-01-09 00:06] VITALS: BP 154/64
--- NOTE | 2021-01-09 02:48 | MORECARE ---
CASE MANAGEMENT DISCHARGE SUMMARY PATIENT: VIDAL MAHER UNIT: [id number] ADM DATE: 12/30/20 AGE: 65 : 55 SEX: M ROOM/BED: D.2138 AUTHOR: ELVINDOC PHYSICIAN: REFERRING PHYSICIAN: GALILEO DALAL MD DATE OF SERVICE: 01/09/21 Case Management Discharge Planning Summary COMMENTS ENTERED DATE: 01/09/21 2:40 CT COMMENT TYPE: Discharge Planning REVIEWER: Marly So CM received notice that patient has been accepted to inpatient rehab at [facility]. Plan to admit 01/09/21 DCP REVIEW SUMMARY ANTICIPATED D/C DATE: EXPECTED LOS : CASE STATUS: DCP Initiated INITIAL REVIEW: 12/30/2020 INITIAL REVIEWER: Marly So FINAL DISCHARGE DISPOSITION: : FINAL REVIEWER: FINAL REVIEW DATE: DCP [facility] Questions & Answers QUESTION: ANSWER : PATIENT: VIDAL MAHER ENCOUNTER: [id number] MEDICAL RECORD#: [id number] ADMISSION DATE: 12/30/2020 DISCHARGE DATE: ATTENDING MD: : AGE: 65 MARITAL STATUS: S DC PLAN ID: [id number] FACILITY: [facility] PRINTED ON: 01/09/21 2:48 CT All edits/amendments must be made on the electronic document DICTATION DATE: 01/09/21247 RAND BUTTING MACHINE OPERATOR: NAYE 01/09/21247 RPT#: [id number] DC DATE: STATUS: ADM IN [facility] [address] [place] [address] END OF REPORT
--- NOTE | 2021-01-09 03:23 | NUR ---
I have reviewed this patient and I concur with the Shift Assessment completed by the Licensed Practical Nurse today this shift.
[2021-01-09 04:18] VITALS: BP 141/88
[2021-01-09 06:25] LABS: BASOPHILS 0.1 % (0-2); EOSINOPHILS 0.3 % (0-7); HEMOGLOBIN 11.5 g/dL (13.5-17.5); IMMATURE GRANULOCYTES 1.3 % (0-5); LYMPHOCYTE ABS# 1.67 10x3/uL (1.32-3.57); LYMPHOCYTES 9.9 % (15-50); MCH 29.7 pg (26.0-34.0); MCHC 33.8 g/dL (31.0-37.0); MCV 87.9 fL (80.0-100.0); MEAN PLATELET VOLUME 9.5 fL (7.4-10.4); MONOCYTES 7.5 % (2-11); NEUTROPHIL ABS# 13.69 10x3/uL (1.78-5.38); NEUTROPHILS 80.9 % (40-80); PLATELET COUNT 392 10x3/uL (130-400); RBC 3.87 10x6/uL (4.20-6.10); RDW 12.8 % (11.5-14.5); WBC 16.9 10x3/uL (4.8-10.8)
[2021-01-09 06:31] LABS: ALBUMIN 1.8 g/dL (3.4-5.0); ANION GAP 13.8 mmol/L (8-16); BILIRUBIN - TOTAL 0.38 mg/dL (0.2-1.3); CALCIUM 8.3 mg/dL (8.5-10.1); CREATININE - SERUM 1.5 mg/dL (0.6-1.3); POTASSIUM - SERUM 3.8 mmol/L (3.5-5.1); PROTEIN - SERUM 5.5 g/dL (6.4-8.2)
--- NOTE | 2021-01-09 07:40 | NUR ---
Lying in bed, awake/alert/oriented, T/R self ad jennifer, cont of B/B with BRPs with assist ad jennifer, c/o 10 aching pain "all over", medicated as ordered(see MAR), call light/phone/water within reach, no s/s of acute distress observed.
[2021-01-09 12:39] VITALS: BP 132/74
[2021-01-09] MEDS ORDERED: INDOCIN25 MG PO (13:26)
[2021-01-09] MEDS ORDERED: VIBRAMYCIN 100100 MG PO (13:30)
[2021-01-09] MEDS ORDERED: HYDROCODON-ACE1 EA10 PO (13:30)
--- NOTE | 2021-01-09 14:09 | NUR ---
Nutrition Reassessment/Follow-up: Tolerating PO intake. Hiccups this AM. Noted plans to d/c to rehab. Diet: Regular, Low Fat No new wt; last wt: 200# (01/02) Labs noted: BUN 33, Cre 1.5, GFR 50, Glu 172, Ca 8.3, Alb 1.8 Meds noted: Miralax, Lactulose, Florajen, Senokot, Protonix, NS @ 75, electrolyte protocol -Nutrition needs unchanged from initial assessment; no new wt available. -Encourage PO intake and honor food preferences within diet restrictions. -RD follow-up: 01/15 if still admitted
--- NOTE | 2021-01-09 15:21 | NUR ---
OT NOTE: (AM) PT C/O OF L PATELLA PAIN.NURSING AWARE. PT REQUIRED MAX A FOR POSITIONING OF L LEG. PT COMPLETED FACE HYGIENE WITH SETUP. (PM) PT COMPLETED BUE AROM EXS TOLERATED. [phone] THANK YOU,OBDULIO RDZ
--- NOTE | 2021-01-09 15:25 | NUR ---
Called report to KATHERIN Wadsworth, inpt rehab; discontinued IV access at this time, no s/s of acute distress observed.
--- NOTE | 2021-01-09 15:50 | NUR ---
Discharged to inpatient rehab in stable condition at this time via w/c accompanied by hospital staff, no s/s of acute distress observed.
--- NOTE | 2021-01-12 14:51 | MORECARE ---
CASE MANAGEMENT DISCHARGE SUMMARY PATIENT: VIDAL MAHER UNIT: [id number] ADM DATE: 12/30/20 AGE: 65 : 55 SEX: M ROOM/BED: D.2138 AUTHOR: ELVINDOC PHYSICIAN: REFERRING PHYSICIAN: GALILEO DALAL MD DATE OF SERVICE: 01/12/21 Case Management Discharge Planning Summary COMMENTS ENTERED DATE: 01/09/21 2:40 CT COMMENT TYPE: Discharge Planning REVIEWER: Marly So CM received notice that patient has been accepted to inpatient rehab at [facility]. Plan to admit 01/09/21 DCP REVIEW SUMMARY ANTICIPATED D/C DATE: EXPECTED LOS : CASE STATUS: DCP Initiated INITIAL REVIEW: 12/30/2020 INITIAL REVIEWER: Marly So FINAL DISCHARGE DISPOSITION: : FINAL REVIEWER: FINAL REVIEW DATE: DCP [employer] Questions [employer]swers QUESTION: ANSWER : PATIENT: VIDAL MAHER ENCOUNTER: [id number] MEDICAL RECORD#: [id number] ADMISSION DATE: 12/30/2020 DISCHARGE DATE: 01/09/2021 ATTENDING MD: : AGE: 65 MARITAL STATUS: S DC PLAN ID: [id number] FACILITY: [facility] PRINTED ON: 01/12/21 14:51 CT All edits/amendments must be made on the electronic document DICTATION DATE: 01/12/211450 IT ENGINEER: NAYE 01/12/211450 RPT#: [id number] DC DATE:01/09/21 STATUS: DIS IN [address] [address] [place] [address] END OF REPORT
== END 2021-01-09 15:50 | DRG 438 ==
LOC: D.ER 10:26 → D.M2 14:08
PROVIDERS: Emergency Medicine; Family Medicine; ADMIT Family Medicine; ATTEND Family Medicine
DX: K85.90 Acute pancreatitis without necrosis or infection, unspecified (principal); J18.9 Pneumonia, unspecified organism; K56.7 Ileus, unspecified; K72.90 Hepatic failure, unspecified without coma; K21.9 Gastro-esophageal reflux disease without esophagitis; K59.00 Constipation, unspecified; I25.10 Atherosclerotic heart disease of native coronary artery without angina pectoris; E87.6 Hypokalemia; M10.9 Gout, unspecified; M25.522 Pain in left elbow; M25.521 Pain in right elbow; M25.562 Pain in left knee; M25.561 Pain in right knee

== ENCOUNTER 2021-01-09 16:33 | Inpatient (IN) | payer MEDICARE ==
[~2021-01-09] VITALS: Ht 182.9 cm; Wt 90.7 kg
--- NOTE | ~2021-01-09 | RHP ---
PATIENT: VIDAL MAHER JR MEDICAL RECORD: [id number] ACCOUNT: [id number] LOCATION:[facility]1114 : 55 ADMISSION DATE: 01/09/21 REHABILITATION HISTORY AND PHYSICAL EXAMINATION POST ADMISSION PHYSICIAN EXAMINATION ADMITTING DIAGNOSIS: Disuse myopathy. HISTORY OF PRESENT ILLNESS: The patient is admitted to the rehab secondary to disuse myopathy. He is easily fatigued, has proximal muscle weakness, generalized debility, left-sided range of motion that is worse, trouble feeding himself. The patient had a hospitalization in December, which he contracted a hospital-acquired pneumonia. He was quite sick throughout this time. He was discharged and returned to the ER on 12/30 with abdominal pain, bloating and he was seen and evaluated and started on appropriate medications at this time. The patient has been utilizing morphine for pain control, he is encouraged to walk as he developed mild ileus on the morphine. He continued to have constipation. His creatinine level as well as his LFTs and white blood cell has varied during his stay. Due to pain and decreased range of motion, he started needing increased assistance with ADLs and became unable to feed himself. Therapy was consulted. They have been following his findings throughout his stay. Noted that he has decreased muscle strength. Previously to this, he was home alone, was independent with all care. He was on appropriate medications at that time for his current debilities. His labs need to be monitored closely at this time along with his cognition, lab values, medication adjustments, will need to monitor pain control. He has got decreased activity tolerance, decreased strength, proximal muscle weakness, balance deficit, decreased range of motion, gait disturbance, impaired mobility. These are all barriers to his discharge home. We will hopefully get him back to his prior level of function at home again. COMORBIDITIES: Include acute kidney injury, anxiety, arthritis, coronary artery disease, congestive heart failure, constipation, difficulty walking, diverticulitis, electrolyte imbalance, emphysema, fatigue, gastroesophageal reflux disease, hypoglycemia, hypoalbuminemia, osteoarthritis, hyponatremia, pneumonia, shortness of breath. PAST MEDICAL HISTORY: Significant for liver failure, gastroesophageal reflux disease, constipation, acute kidney injury, CHF, emphysema, history of CVA. PAST SURGICAL HISTORY: Includes stents and angioplasty, tonsillectomy and adenoidectomy and shoulder surgery. ALLERGIES: No known drug allergies. CURRENT MEDICATIONS: Include Floranex one cap daily. He is on nifedipine 60 mg daily. He is on Protonix 40 mg daily. He is on Vibramycin 100 mg b.i.d., Indocin 25 mg t.i.d. with meals, [place] 10/325 one tablet q.6 hours p.r.n. HABITS: No current alcohol or tobacco use. FAMILY HISTORY: Noncontributory. SOCIAL HISTORY: The patient hopes to return back home and get back to his prior level of functioning. HISTORY AND PHYSICAL [id number] VIDAL MAHER JR REVIEW OF SYSTEMS: GENERAL: He does complain of weakness and fatigue. HEENT: Denies cold, cough, congestion. CARDIOVASCULAR: Denies any chest pain. PHYSICAL EXAMINATION: VITAL SIGNS: Stable, afebrile. GENERAL: A well-developed gentleman in no acute distress, alert upon exam. HEENT: Normocephalic and atraumatic. Mucosa moist. NECK: Supple with no lymphadenopathy. LUNGS: Clear at this time. No wheezing or rales. HEART: Regular rate and rhythm. No murmurs, rubs or gallops. ABDOMEN: Soft, benign, nondistended. Positive bowel sounds times 4. EXTREMITIES: No clubbing, cyanosis or edema. NEUROLOGIC: Does have some diffuse weakness. LABORATORY DATA: His white count 14.9, H&H of 11 and 34 and platelet count is noted to be 350. His sodium is 136, potassium 4.1, BUN and creatinine of 27 and 1.6 and blood sugar was noted to be 202. ASSESSMENT: This is a 65-year-old gentleman admitted to the rehab with a working diagnosis of debility. The patient has potential to make improvements. We instituted the following multidisciplinary therapies including, but not limited to physical, occupational, respiratory, speech, nutritional services, prosthetics and orthotics. Given his complex medical condition and risks for more complications, rehabilitation services cannot be provided at a low level of care such as [facility] facility. PLAN: Admit to [facility] for inpatient therapy to include the following disciplines: A. Physical therapy to improve gait, all transfer skills and bed mobility to a modified independent level. B. Occupational therapy to improve activities of daily living. C. Case management to help with discharge planning and placement options. D. Nutrition to assist with nutritional needs. E. Rehabilitation nursing to assist in monitoring the patient's underlying medical conditions and to assist with any type of bowel or bladder management. 1. The patient's current medication and medical care will be continued. 2. Will be placed on standard fall precautions. 3. The patient's estimated length of stay approximately 5-7 days. We will discuss the patient during care team staff meeting as needed. TRANSINT:[id number] Voice Confirmation ID: [id number] DOCUMENT ID: [id number] 01/16/2021 risa ARCOS notes whether there has been none or any medical/functional change since admission: - No change since preadmission screen. JOSSELYN attests patient continues to be appropriate for IRF: HISTORY AND PHYSICAL [id number] VIDAL MAHER JR - Continues to be appropriate. ORA REED MD CC: [id number] DICTATION DATE: 01/10/211950 BELT MEASURER: 01/11/21 0040 ADM IN [facility] [address] [id number]
[~2021-01-09 16:33] MED LIST changes: +HYDROCODON-ACE1 EA10 PO; +INDOCIN25 MG PO; +VIBRAMYCIN 100100 MG PO
[2021-01-09 17:42] VITALS: BP 112/59; BMI 27.2
--- NOTE | 2021-01-09 18:50 | NUR ---
BEDSIDE REPORT COMPLETE. RECEIVED PT LYING IN BED EYES CLOSED RESTING. RR EVEN AND UNLABORED. EASILY AROUSED WITH STIMULI. DENIES ANY NEEDS OR PAIN. NO IV OR OXYGEN NOTED. CALL LIGHT AND WATER WITHIN REACH. BRENDA ALARM ON. CPOC
[2021-01-09 21:20] VITALS: BP 112/59
--- NOTE | 2021-01-10 03:03 | NUR ---
PT CALLED REQUESTING PAIN MEDICATION FOR 03/14 LEFT KNEE DEEP THROBBING PAIN. ADMININSTERED NORCO PER ORDER. NO OTHER NEEDS VOICED. CALL LIGHT WITHIN REACH. BRENDA ALARM ON.
--- NOTE | 2021-01-10 05:35 | NUR ---
PT LYING IN BED EYES CLOSED RESTING. RR EVEN AND UNLABORED. NO ACUTE CHANGES IN CONDITION NOTED THIS SHIFT. CALL LIGHT AND WATER WITHIN REACH. BRENDA ALARM ON
[2021-01-10 08:00] VITALS: BP 113/69
--- NOTE | 2021-01-10 10:47 | NUR ---
WORKING [facility] THERAPY. LIMITED ROM TO LUE, DECREASED STORE CASHIER STRENGTH TO LUE. PAIN MEDS GIVEN ORDERED AND REQUESTED.
[2021-01-10 10:52] VITALS: Ht 182.9 cm; Wt 90.7 kg
[2021-01-10 11:40] LABS: BASOPHILS 0.1 % (0-2); EOSINOPHILS 0.7 % (0-7); HEMATOCRIT 33.8 % (42.0-54.0); HEMOGLOBIN 11.4 g/dL (13.5-17.5); IMMATURE GRANULOCYTES 2.1 % (0-5); LYMPHOCYTE ABS# 0.94 10x3/uL (1.32-3.57); LYMPHOCYTES 6.3 % (15-50); MCH 29.4 pg (26.0-34.0); MCHC 33.7 g/dL (31.0-37.0); MCV 87.1 fL (80.0-100.0); MEAN PLATELET VOLUME 9.1 fL (7.4-10.4); NEUTROPHIL ABS# 12.53 10x3/uL (1.78-5.38); NEUTROPHILS 83.8 % (40-80); PLATELET COUNT 350 10x3/uL (130-400); RBC 3.88 10x6/uL (4.20-6.10); RDW 12.7 % (11.5-14.5); WBC 14.9 10x3/uL (4.8-10.8)
[2021-01-10 11:57] LABS: CALCIUM 7.9 mg/dL (8.5-10.1); CARBON DIOXIDE 23.1 mmol/L (21.0-32.0); CREATININE - SERUM 1.6 mg/dL (0.6-1.3); POTASSIUM - SERUM 4.1 mmol/L (3.5-5.1)
--- NOTE | 2021-01-10 18:40 | NUR ---
BEDSIDE REPORT COMPLETE. RECEIVED PT LYING IN BED. ALERT AND ORIENTED X4. DENIES ANY NEEDS OR PAIN. NO DISTRESS NOTED. CALL LIGHT AND WATER WITHIN REACH. BRENDA ALARM ON. CPOC
[2021-01-10 19:00] VITALS: BP 128/68
--- NOTE | 2021-01-11 01:46 | NUR ---
PT LYING IN BED ON LEFT SIDE EYES CLOSED RESTING. RR EVEN AND UNLABORED. CALL LIGHT WITHIN REACH. BRENDA ALARM ON
--- NOTE | 2021-01-11 02:41 | NUR ---
I have reviewed this patient and I concur with the Shift Assessment completed by the Licensed Practical Nurse today this shift.
--- NOTE | 2021-01-11 05:20 | NUR ---
PT LYING IN BED AWAKE. NO DISTRESS NOTED. NO ACUTE CHANGES IN CONDITION THIS SHIFT. EARLY AM MEDS ADMININSTERED WITHOUT DIFFICULTY. DENIES ANY NEEDS. CALL LIGHT AND WATER WITHIN REACH. BRENDA ALARM ON
[2021-01-11 08:00] VITALS: BP 126/73
--- NOTE | 2021-01-11 10:15 | NUR ---
RESTING IN BED SNORING LOUDLY. WAKES EASILY. LEFT KNEE STILL SWOLLEN AND PAINFUL. LIMITED ROM TO LUE. CALL LIGHTIN REACH. BED IN LOWEST POSITION. SIDE RAILS UP X2.
[2021-01-11 19:00] VITALS: BP 129/73
--- NOTE | 2021-01-11 19:51 | NUR ---
PATIENT RECEIVED SITTING UP IN BED. ASSESSMENT & VITAL SIGNS DONE. BED LOW. ALARM ON. BEDSIDE TABLE WITHIN REACH. NO C/O PAIN OR DISTRESS AT THIS TIME. WILL CONTINUE TO MONITOR.
--- NOTE | 2021-01-12 03:27 | NUR ---
I have reviewed this patient and I concur with the Shift Assessment completed by the Licensed Practical Nurse today this shift.
[2021-01-12 07:57] VITALS: BP 132/73
[2021-01-12 08:19] LABS: BASOPHILS 0.2 % (0-2); EOSINOPHILS 2.6 % (0-7); HEMATOCRIT 34.8 % (42.0-54.0); HEMOGLOBIN 11.6 g/dL (13.5-17.5); IMMATURE GRANULOCYTES 2.1 % (0-5); LYMPHOCYTE ABS# 1.39 10x3/uL (1.32-3.57); LYMPHOCYTES 12.6 % (15-50); MCH 28.9 pg (26.0-34.0); MCHC 33.3 g/dL (31.0-37.0); MCV 86.8 fL (80.0-100.0); MEAN PLATELET VOLUME 9.2 fL (7.4-10.4); MONOCYTES 8.8 % (2-11); NEUTROPHILS 73.7 % (40-80); PLATELET COUNT 371 10x3/uL (130-400); RBC 4.01 10x6/uL (4.20-6.10); RDW 12.5 % (11.5-14.5)
[2021-01-12 08:28] LABS: ANION GAP 10.9 mmol/L (8-16); CALCIUM 8.5 mg/dL (8.5-10.1); CARBON DIOXIDE 26.3 mmol/L (21.0-32.0); CREATININE - SERUM 1.4 mg/dL (0.6-1.3); POTASSIUM - SERUM 4.2 mmol/L (3.5-5.1)
--- NOTE | 2021-01-12 09:00 | NUR ---
HE IS C/O PAIN IN BOTH KNEES AND ELBOWS. HE THINKS IT'S GOUT OR HIS AR. IT IS NOT TIME FOR PAIN MEDS YET. HE SAYS HE CAN NOT MOVE HIS LEFT KNEE. THE CALL LIGHT IS [employer] AND THE BED ALARM IS ON.
--- NOTE | 2021-01-12 19:39 | NUR ---
AWAKE AND ALERT RESTING IN BED WITH RESPIRATIONS UNLABORED. NO DISTRESS NOTED. CALL LIGHT IN REACH.
[2021-01-12 19:58] VITALS: BP 113/67
--- NOTE | 2021-01-13 05:26 | NUR ---
QUIET HOURS. NO ACUTE CHANGES IN CONDITION THIS SHIFT. RESTING IN BED WITH NO DISTRESS NOTED.
[2021-01-13 07:34] VITALS: BP 112/73
--- NOTE | 2021-01-13 08:00 | NUR ---
SHIFT ASSMT COMPLETED
--- NOTE | 2021-01-13 12:00 | NUR ---
SITTING UP EATING LUNCH.
--- NOTE | 2021-01-13 16:11 | NUR ---
Nutrition Follow-up: Diet: Regular, low fat PO intake: ~54% average x last 5 meals. Patient asleep at time of RD visit. Last BM: 01/12/21 Wt: 200# (01/10/21) Meds noted: senokot, miralax, lactulose, probiotics, abx Labs noted: Glu 144(H) Recommend continue current diet. Offer oral nutrition supplements if PO Intake continues to trend <65%. RD will re-assess 01/16/21.
--- NOTE | 2021-01-13 19:55 | NUR ---
AWAKE AND ALERT. RESTING IN BED WITH RESPIRATIONS UNLABORED. NO DISTRESS NOTED. CALL LIGHT IN REACH.
[2021-01-13 19:58] VITALS: BP 117/67
--- NOTE | 2021-01-14 04:56 | NUR ---
QUIET HOURS. NO ACUTE CHANGES IN CONDITION THIS SHIFT. RESTING IN BED WITH NO DISTRESS NOTED.
[2021-01-14 07:34] LABS: BASOPHILS 0.2 % (0-2); EOSINOPHILS 2.2 % (0-7); HEMATOCRIT 34.8 % (42.0-54.0); HEMOGLOBIN 11.6 g/dL (13.5-17.5); IMMATURE GRANULOCYTES 2.6 % (0-5); LYMPHOCYTE ABS# 1.86 10x3/uL (1.32-3.57); LYMPHOCYTES 15.7 % (15-50); MCH 29.2 pg (26.0-34.0); MCHC 33.3 g/dL (31.0-37.0); MCV 87.7 fL (80.0-100.0); MEAN PLATELET VOLUME 9.7 fL (7.4-10.4); MONOCYTES 9.7 % (2-11); NEUTROPHIL ABS# 8.23 10x3/uL (1.78-5.38); NEUTROPHILS 69.6 % (40-80); RBC 3.97 10x6/uL (4.20-6.10); RDW 12.5 % (11.5-14.5); WBC 11.8 10x3/uL (4.8-10.8)
[2021-01-14 07:43] LABS: PLATELET COUNT 472 10x3/uL (130-400)
[2021-01-14 07:51] VITALS: BP 100/64
[2021-01-14 07:57] LABS: ALBUMIN 2.1 g/dL (3.4-5.0); ANION GAP 12.2 mmol/L (8-16); BILIRUBIN - TOTAL 0.41 mg/dL (0.2-1.3); CALCIUM 8.7 mg/dL (8.5-10.1); CREATININE - SERUM 1.4 mg/dL (0.6-1.3); POTASSIUM - SERUM 4.2 mmol/L (3.5-5.1)
--- NOTE | 2021-01-14 08:00 | NUR ---
SHIFT ASSMT COMPLETED.CL IN REACH.
--- NOTE | 2021-01-14 16:00 | NUR ---
WILL CONTINUE CARE.
--- NOTE | 2021-01-14 16:58 | NUR ---
CLINICAL UPDATES FAXED TO [employer] AT , AUTH. # [id number] WITH FAX CONFORMATION RECIEVED.
--- NOTE | 2021-01-14 18:59 | NUR ---
BEDSIDE REPORT COMPLETE. RECIEVED PT SITTING UP IN BED. ALERT AND ORIENTED X4. DENIES ANY NEEDS. C/O MILD LEFT KNEE DISCOMFORT. NO IV OR OXYGEN. CALL LIGHT AND WATER WITHIN REACH. BRENDA ALARM ON. CPOC
[2021-01-14 21:24] VITALS: BP 113/69
--- NOTE | 2021-01-15 03:26 | NUR ---
PT LYING IN BED ON LEFT SIDE EYES CLOSED RESTING. RR EVEN AND UNLABORED. CALL LIGHT WITHIN REACH.
[2021-01-15 07:42] VITALS: BP 103/72
--- NOTE | 2021-01-15 15:39 | NUR ---
RESTING QUIETLY IN BED WATCHING TV. DENIES INCREASED PAIN BUT STILL HAS DISCOMFORT IN JOINTS. LEFT KNEE STILL SWOLLEN SOME. BALANCE AND STAMINA ARE IMPROVED. DENIES NEEDS. CALL LIGHT IN REACH
[2021-01-15 20:42] VITALS: BP 156/81
--- NOTE | 2021-01-16 01:14 | NUR ---
PT LYING IN BED ON LEFT SIDE EYES CLOSED RESTING. RR EVEN AND UNLABORED. BRENDA ALARM ON
--- NOTE | 2021-01-16 04:55 | NUR ---
PT SITTING UP ON SIDE OF BED. DENIES ANY NEEDS OR PAIN. NO DISTRESS NOTED. NO ACUTE CHANGES IN CONDITION THIS SHIFT. CALL LIGHT WITHIN REACH. BRENDA ALARM ON.
[2021-01-16 07:18] LABS: CALCIUM 8.7 mg/dL (8.5-10.1); CARBON DIOXIDE 26.4 mmol/L (21.0-32.0); CREATININE - SERUM 1.6 mg/dL (0.6-1.3); POTASSIUM - SERUM 4.4 mmol/L (3.5-5.1)
[2021-01-16 07:26] VITALS: BP 147/80
[2021-01-16 07:45] LABS: BASOPHILS 0.3 % (0-2); EOSINOPHILS 1.9 % (0-7); HEMATOCRIT 35.7 % (42.0-54.0); HEMOGLOBIN 11.7 g/dL (13.5-17.5); IMMATURE GRANULOCYTES 1.6 % (0-5); LYMPHOCYTE ABS# 1.76 10x3/uL (1.32-3.57); LYMPHOCYTES 15.3 % (15-50); MCH 29.2 pg (26.0-34.0); MCHC 32.8 g/dL (31.0-37.0); MEAN PLATELET VOLUME 9.5 fL (7.4-10.4); MONOCYTES 10.3 % (2-11); NEUTROPHIL ABS# 8.13 10x3/uL (1.78-5.38); NEUTROPHILS 70.6 % (40-80); PLATELET COUNT 439 10x3/uL (130-400); RBC 4.01 10x6/uL (4.20-6.10); RDW 12.6 % (11.5-14.5); WBC 11.5 10x3/uL (4.8-10.8)
[2021-01-16] MEDS ORDERED: HYDROCODON-ACE1 EA10 PO (08:50)
--- NOTE | 2021-01-16 10:30 | NUR ---
DC HOME WITH ALL PERSONAL BELONGINGS. MEDS CALLED IN TO PHARMACY. REVIEWED MEDS AND DC PLAN. DENIES QUESTIONS.
--- NOTE | 2021-01-16 11:15 | NUR ---
DC HOME WITH ALL PERSONAL BELONGINGS. PRESCRIPTION FOR PAIN MEDS GIVEN. MEDS CALLED INTO PHARMACY. REVIEWED DC PLAN AND MEDS. DENIES QUESTIONS.
== END 2021-01-16 11:30 | disposition home or self-care (01) | DRG 91 ==
LOC: D.REHAB 16:33
PROVIDERS: ADMIT Emergency Medicine; ATTEND Emergency Medicine
DX: G72.89 Other specified myopathies (principal); J18.9 Pneumonia, unspecified organism; K85.90 Acute pancreatitis without necrosis or infection, unspecified; N17.9 Acute kidney failure, unspecified; K57.92 Diverticulitis of intestine, part unspecified, without perforation or abscess without bleeding; E87.1 Hypo-osmolality and hyponatremia; F41.9 Anxiety disorder, unspecified; M19.90 Unspecified osteoarthritis, unspecified site; I25.10 Atherosclerotic heart disease of native coronary artery without angina pectoris; I50.9 Heart failure, unspecified; K59.00 Constipation, unspecified; R26.2 Difficulty in walking, not elsewhere classified; E87.8 Other disorders of electrolyte and fluid balance, not elsewhere classified; J43.9 Emphysema, unspecified; R53.83 Other fatigue; K21.9 Gastro-esophageal reflux disease without esophagitis; E16.2 Hypoglycemia, unspecified; R06.02 Shortness of breath; D64.9 Anemia, unspecified; G89.29 Other chronic pain; R74.01 Elevation of levels of liver transaminase levels